=== PATIENT | female | born 1990 | race Two or more races ===

== ENCOUNTER → 2023-07-17 | Outpatient (CLI) | payer OTHER | LOC: M PLARAD 09:52 → MERGE 10:00 | PROVIDERS: ATTEND Nurse Practitioner Adult Health | DX: S86.812A Strain of other muscle(s) and tendon(s) at lower leg level, left leg, initial encounter (principal); X58.XXXA Exposure to other specified factors, initial encounter; Y99.9 Unspecified external cause status; Y92.9 Unspecified place or not applicable ==

== ENCOUNTER → 2023-12-11 | Outpatient (REF) | payer OTHER | LOC: M LAB REF 16:53 | PROVIDERS: ATTEND Nurse Practitioner Adult Health | DX: N89.8 Other specified noninflammatory disorders of vagina (principal) ==

== ENCOUNTER → 2024-02-18 | Outpatient (CLI) | payer OTHER | LOC: M SLEEP HO 11:31 | PROVIDERS: ATTEND Nurse Practitioner Adult Health | DX: R06.83 Snoring (principal) ==

== ENCOUNTER → 2024-04-12 | Outpatient (REF) | payer OTHER | LOC: M LAB REF 12:42 | PROVIDERS: ATTEND Nurse Practitioner Adult Health | DX: N89.8 Other specified noninflammatory disorders of vagina (principal) ==

== ENCOUNTER 2024-12-07 21:02 | Emergency (ER) | payer OTHER ==
[~2024-12-07] VITALS: Ht 157.5 cm; Wt 56.6 kg
[2024-12-07 21:07] VITALS: BP 137/85; TEMP 97.6; O2SAT 100
[2024-12-07] MEDS ORDERED: ADDE1TAB14 PO (21:19)
== END 2024-12-07 22:15 | disposition left against medical advice (07) ==
LOC: M ED 21:02
DX: Z53.21 Procedure and treatment not carried out due to patient leaving prior to being seen by health care provider (principal)